=== PATIENT | male | born 1985 | race Caucasian/White ===

== ENCOUNTER 2019-09-11 10:52 | Emergency (ER) | payer OTHER, SELFPAY ==
[2019-09-11 10:56] VITALS: BP 143/105; PULSE 126; RESP 18; RESP 20; TEMP 37.7; O2SAT 96; BMI 22.0
--- NOTE | 2019-09-11 11:20 | DCINST.ED_ITS ---
ED Disposition - Plan for ED Patient: Instructions: ED Abrasion Referrals: Bobby Aguilar MD [Primary Care Provider] - [facility] [GROUP OF PHYSICIANS] -
--- NOTE | 2019-09-11 11:23 | ED.DCSUM_ITS ---
- ER Visit Summary Date of Service: 09/11/19 Chief Complaint: Facial abrasion History of Present Illness: The patient is a 33 M presenting with abrasion to the left side of his face. 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 He was scratched on the left side of his face. He did not fall or lose consciousness. His last tetanus is unknown. No other injuries. Physical Examination: Vitals are stable. Patient is afebrile. Alert no acute distress. HEENT exam 10 cm abrasion left face with no active bleeding. Neck is nontender Lungs are clear and equal bilaterally. Heart is regular rate and rhythm. Extremities are unremarkable. Skin is warm and dry. No focal neurologic deficit. Remainder of exam is unremarkable. Emergency Department Course and Treatment: Patient was given tetanus IM. Wound was irrigated and dressed with bacitracin. Advised wound care instructions. Advised to follow-up with [facility] as needed. Advised return to ED for worsening complaints. Disposition: Discharged home Impression: Facial abrasion This note was generated with [employer] dictation software. It may contain incorrect words, spelling, and punctuation that were not noted in review of the chart prior to signing ED Disposition - Plan for ED Patient: Instructions: ED Abrasion Referrals: [facility] [GROUP OF PHYSICIANS] - Bobby Aguilar MD [Primary Care Provider] -
[2019-09-11] MEDS: Diphth,Pertuss(Acell),Tet Vac 0.5 ML Vial IM (11:37)
[2019-09-11 11:48] VITALS: BP 152/98; PULSE 119; O2SAT 95
--- NOTE | 2019-09-11 11:59 | ED.RN ---
pt having drug screening at this time, will leave after screening.
== END 2019-09-11 12:12 | disposition home or self-care (01) ==
PROVIDERS: Emergency Provider Emergency Medicine; PCP Family Medicine
DX: S00.81XA Abrasion of other part of head, initial encounter (principal); W50.4XXA Accidental scratch by another person, initial encounter; Y93.89 Activity, other specified; Y92.9 Unspecified place or not applicable; Y99.0 Civilian activity done for income or pay
CPT/HCPCS: 90471; 90715; 99282